=== PATIENT | female | born 1965 ===

== ENCOUNTER → 2025-09-28 12:01 | Outpatient (CLI) | payer OTHER, SELFPAY ==
--- NOTE | 2025-09-28 12:06 | DI.RAD.S_ITS ---
PROCEDURE: XR KNEE LT 3V INDICATIONS: LT KNEE INJURY TECHNIQUE: 3 views of the knee were acquired. COMPARISON: None. FINDINGS: Bones: No fractures or dislocations. No suspicious bony lesions. Mild tricompartmental joint space narrowing and osteophytosis. Suprapatellar enthesophytes. Soft tissues: Small joint effusion. No suspicious soft tissue calcifications. IMPRESSION: No acute bony abnormality or significant effusion. Mild tricompartmental osteoarthrosis. Approved by: Nahomi Maher M.D.,Ph.D. on 09/28/2025 at 15:58
== END ==
PROVIDERS: Visit Provider Nurse Practitioner
DX: S89.92XA Unspecified injury of left lower leg, initial encounter (principal); M17.12 Unilateral primary osteoarthritis, left knee; X58.XXXA Exposure to other specified factors, initial encounter
CPT/HCPCS: 73562